=== PATIENT | male | born 1990 | race Caucasian/White ===

== ENCOUNTER 2023-04-03 15:33 | Inpatient (IN) | payer SELFPAY ==
[2023-04-03 16:39] VITALS: BMI 35.2
[2023-04-03 16:40] VITALS: BP 186/94; PULSE 91; RESP 16; TEMP 36.8; O2SAT 96
--- NOTE | 2023-04-03 17:01 | PC.NURSE ---
PT WAS A DIRECT ADMIT FROM [facility] IN [facility]. PT WENT TO THE [place] [employer]PARTMENT AND ASKED FOR HELP STATING THAT HE WAS WANTING TO SHOOT HIMSELF. PT TURNED OVER HIS 9 MM TO THE PD PRIOR TO ARRIVING AT [facility]. UPON ADMIT TO THE NPU PT STATED TO THIS NURSE THAT THESE LAST FEW WEEKS HAVE BEEN HARD, I RECENTLY LOST MY JOB AND MY GIRLFRIEND AND I ARE STRUGGLING. WHEN ASKED WHAT HAPPENED PT STATED I OVERHEARD MY GIRLFRIEND OF FIVE YEARS CRYING AND I JUST DIDN'T HANDLE IT WELL, I DECIDED I WAS GOING TO KILL MYSELF, I DIDN'T WANT TO MAKE A MESS SO I DECIDED TO TAKE A WALK AND DURING THAT WALK I DECIDED TO SEEK HELP.
[2023-04-03] MEDS: nicotine 2 mg Gum BUCCAL (17:57)
[2023-04-03 20:13] VITALS: BP 132/77; PULSE 77; RESP 17; TEMP 36.8; O2SAT 98
[2023-04-04 06:00] VITALS: BP 127/77; PULSE 59; RESP 15; TEMP 36.4; O2SAT 97
--- NOTE | 2023-04-04 08:52 | P.NPUHP_ITS ---
Providers/Chief Complaint Admitting Physician: Basilio Trimble MD Chief Complaint: SI HPI NPU History of Present Illness Prashanth Matthews is a 33 year old male who presented to an outside hospital having presented with the police secondary to going into the police department stating he was suicidal and giving them the gun that he had in his pocket. 2 officers wrote affidavits to use in the event that a 96-hour hold will be needed. He had written suicide notes explaining the situation and if someone were to find him and asked them to tell his mother he was sorry. He left that 9 mm with the police and the hospital transferred him to [facility] where he was admitted to the neuropsychiatric unit for definitive treatment of those issues. Patient presents today having had a negative drug testing at the outside hospital and a nonpositive BAL. He presented today reporting: CHIEF COMPLAINT: Patient has been struggling mentally for the past couple of weeks, feeling like a failure in his relationship and job search. He recently had a severe suicidal episode where he planned to shoot himself but ultimately turned himself into the police station instead. HISTORY OF THE PRESENT COMPLAINT: The patient, Prashanth, reported that he has been struggling mentally for the past couple of weeks. He has been unemployed for about 4 and a half months, which has been a source of stress for him. He reported feeling worthless and like a failure, particularly in relation to his job search and his relationship with his girlfriend. He described having a low mood and feelings of helplessness. A significant event that led to his current visit was overhearing his girlfriend crying on the phone, which he interpreted negatively, believing she was upset because of him. This event triggered a severe emotional response, leading him down a dark path . He reported that he retrieved a gun from his dresser drawer and wrote a suicide note, intending to walk towards the highway and end his life. However, he was unable to go through with it and instead turned himself into the police station, seeking help. Prashanth reported that he has had suicidal thoughts before when his stress levels were high, but he was usually able to brush them off. He also admitted to having a passive wish, particularly when he was having a bad week at work. He reported occasional anxiety symptoms, but these were rare. He denied experiencing paranoia or hearing voices. In terms of coping mechanisms, he mentioned that he would distract himself from negative thoughts by reading something on his phone. He also reported that he would clean the kitchen when he was feeling particularly stressed or emotional. In terms of past treatments, he mentioned attending an anger management course as a child. He has not been on any psychiatric medication before. He reported using tobacco and occasionally cannabis, but denied any other substance use. He reported a significant memory of his mother having a blood clot and undergoing open heart surgery, which has stayed with him. He also mentioned having to put a dog down recently, which made him sad. His mood during the consultation was reported as being good, and he denied any current thoughts of self-harm or harm to others. He expressed some apprehension about the potential impact of medication on his ability to get a job. MENTAL HEALTH HISTORY Patient attended an anger management course as a child. He has had suicidal thoughts before, but was usually able to brush them off. Recently, he has been feeling more worthless and has had a passive wish. He has not been on any psychiatric medication. SOCIAL HISTORY Patient has been unemployed for 4 1/2 months. He lives with his girlfriend, her non-biological brother, and her biological cousin. He has a history of tobacco use (chewing) for 12 years and occasional cannabis use. His mother is an alcoholic, but he does not drink. He has no history of drug use. He has a high school diploma and some college education in construction and criminal justice. He has never been and has no known biological children. His parents when he was 12 to 13 years old. He denied history or clear mormonism affiliation. [facility] NPU Home Medications Medication Instructions Recorded Confirmed Last Taken Type No Known Home Medications 04/03/23 04/03/23 Unknown History Allergies Allergy/AdvReac Type Severity Reaction Status Date / Time No Known Allergies Allergy Verified 04/03/23 16:39 Mental Status Exam MSE Comments: This is an obese white male in hospital scrubs with adequate grooming and eye contact. No abnormal movements except for mild psychomotor retardation. Cooperative with exam in mild distress. Speech was slightly decreased rate and volume. Mood described as depressed, affect congruent. Thought process organized. Thought content: Patient denied suicidal or homicidal ideation, there were no delusions reported or noted, he denied auditory or visual hallucinations. Attention and concentration were intact and memory was appeared reliable but none were formally tested. He is alert and oriented x 3. Insight and judgment are fair, impulse control is impaired Vitals/I&O/Wt Last Vital Signs Temp 97.6 F 04/04/23 06:00 Pulse 59 L 04/04/23 06:00 Resp 15 04/04/23 06:00 BP 127/77 04/04/23 06:00 Pulse Ox 97 04/04/23 06:00 O2 Del Method Room Air 04/04/23 06:00 04/03/23 04/04/23 04/04/23 22:59 06:59 14:59 Intake Total 500 / 500 Balance 500 / 500 Weight last 48 hrs Weight 127.913 kg A&P Assessment and plan (1) Major depressive disorder: Plan This is a 33-year-old male who presented to an outside hospital with police with reports of suicidal thoughts having taken his gun to the police station and having written a suicide note with significant depression and recent psychosocial stressors including being unemployed for the last 4 and half months open to a trial of medication. 1. Continue current medication. Start Prozac 20 mg p.o. daily. 2. encourage individual group and milieu therapy. 3. continue 15-minute med checks for safety. 4. recommend sober living treatment at the highest level of care to which the patient is willing to commit. 5. Consider a 96-hour hold Involuntary Hold Information 96 Hour Hold: 96 Hour Involuntary Admission: No Attestations NPU Medical Necessity Statement*: Inpatient hospitalization is medically necessary and the clinically appropriate intervention at this time. We will monitor medications and make changes as indicated. Patient will be in the hospital for over two midnights. Likely length of stay 3-5 days. Coding Level of Care Code Acute Code for Chg Fwd Diagnoses Major depressive disorder F32.9
[2023-04-04] MEDS: nicotine 2 mg Gum BUCCAL ×4 (08:59→18:17)
[2023-04-04 14:00] VITALS: BP 147/79; PULSE 75; RESP 16; TEMP 36.5; O2SAT 98
[2023-04-04] MEDS: fluoxetine 20 mg Capsule PO (16:14)
[2023-04-04 21:39] VITALS: BP 121/46; PULSE 70; RESP 16; TEMP 36.3; O2SAT 98
[2023-04-05] MEDS: nicotine 2 mg Gum BUCCAL ×6 (05:33→21:54)
[2023-04-05 06:00] VITALS: BP 131/83; PULSE 74; RESP 18; TEMP 36.8; O2SAT 97
[2023-04-05] MEDS: fluoxetine 20 mg Capsule PO (08:13)
[2023-04-05 14:00] VITALS: BP 144/78; PULSE 74; RESP 14; TEMP 36.8; O2SAT 100
--- NOTE | 2023-04-05 14:07 | W.PM.NPUPNS ---
Subjective NPU Subjective: Patient presented today reporting that he was feeling a little better. He denied any side effects to the Prozac except reporting that when he had it yesterday that he felt he got a little hyper for a moment but did not have that response this morning when he took it. He reports that he has spoken with his significant other and they are talking about some long-term plans that we will get them out of the place with his mother and starting to move towards something that it is independent together. He reports he is feeling a little more optimistic and we talked about the likelihood of discharge on Friday. Mental Status Exam MSE Comments: This is an obese white male in hospital scrubs with adequate grooming and eye contact. No abnormal movements except for mild psychomotor retardation. Cooperative with exam in mild distress. Speech was slightly decreased rate and volume. Mood described as a little better, affect congruent. Thought process organized. Thought content: Patient denied suicidal or homicidal ideation, there were no delusions reported or noted, he denied auditory or visual hallucinations. Attention and concentration were intact and memory was appeared reliable but none were formally tested. He is alert and oriented x 3. Insight and judgment are fair, impulse control is impaired Vitals/I&O/Wt Last Vital Signs Temp 98.3 F 04/05/23 06:00 Pulse 74 04/05/23 06:00 Resp 18 04/05/23 06:00 BP 131/83 04/05/23 06:00 Pulse Ox 97 04/05/23 06:00 O2 Del Method Room Air 04/05/23 06:00 04/04/23 04/05/23 04/05/23 22:59 06:59 14:59 Intake Total 500 / 500 Balance 500 / 500 Weight last 48 hrs Weight 127.913 kg A&P Assessment and plan (1) Major depressive disorder: Plan This is a 33-year-old male who presented to an outside hospital with police with reports of suicidal thoughts having taken his gun to the police station and having written a suicide note with significant depression and recent psychosocial stressors including being unemployed for the last 4 and half months open to a trial of medication. 1. Continue current medication. Started Prozac 20 mg p.o. daily. 2. encourage individual group and milieu therapy. 3. continue 15-minute med checks for safety. 4. recommend sober living treatment at the highest level of care to which the patient is willing to commit. Involuntary Hold Information 96 Hour Hold: 96 Hour Involuntary Admission: No Attestations NPU Medical Necessity Statement*: Inpatient hospitalization is medically necessary and the clinically appropriate intervention at this time. We will monitor medications and make changes as indicated. Likely length of stay 2-4 days. Coding Level of Care Code Acute Code for Chg Fwd Diagnoses Major depressive disorder F32.9
[2023-04-05 22:00] VITALS: BP 141/86; PULSE 64; RESP 18; TEMP 36.4; O2SAT 95
[2023-04-06 06:00] VITALS: BP 135/80; PULSE 59; RESP 18; TEMP 36.5; O2SAT 99
[2023-04-06] MEDS: fluoxetine 20 mg Capsule PO (07:35)
[2023-04-06] MEDS: nicotine 2 mg Gum BUCCAL ×5 (07:35→20:14)
--- NOTE | 2023-04-06 08:21 | W.PM.NPUPNS ---
Subjective NPU Subjective: Patient presented today reporting that he reached out to his father which was fairly emotional but that he is feeling more positive about moving forward. We discussed the treatment team returning tomorrow and being able to assist him in getting appropriate follow-up. We discussed the likelihood of discharge in the next 48 hours, but likely tomorrow if he continues his current trajectory. Mental Status Exam MSE Comments: This is an obese white male in hospital scrubs with adequate grooming and eye contact. No abnormal movements except for mild psychomotor retardation. Cooperative with exam in no acute distress. Speech was normal rate and volume. Mood described as a little better, affect congruent. Thought process organized. Thought content: Patient denied suicidal or homicidal ideation, there were no delusions reported or noted, he denied auditory or visual hallucinations. Attention and concentration were intact and memory was appeared reliable but none were formally tested. He is alert and oriented x 3. Insight and judgment are fair, impulse control is improving. Vitals/I&O/Wt Last Vital Signs Temp 97.7 F 04/06/23 06:00 Pulse 59 L 04/06/23 06:00 Resp 18 04/06/23 06:00 BP 135/80 04/06/23 06:00 Pulse Ox 99 04/06/23 06:00 O2 Del Method Room Air 04/05/23 06:00 04/05/23 04/06/23 04/06/23 22:59 06:59 14:59 Intake Total 500 / 500 Balance 500 / 500 Weight last 48 hrs Weight 130 kg Weight 130.09 kg A&P Assessment and plan (1) Major depressive disorder: Plan This is a 33-year-old male who presented to an outside hospital with police with reports of suicidal thoughts having taken his gun to the police station and having written a suicide note with significant depression and recent psychosocial stressors including being unemployed for the last 4 and half months open to a trial of medication. 1. Continue current medication. Started Prozac 20 mg p.o. daily. 2. encourage individual group and milieu therapy. 3. continue 15-minute med checks for safety. 4. recommend sober living treatment at the highest level of care to which the patient is willing to commit. Involuntary Hold Information 96 Hour Hold: 96 Hour Involuntary Admission: No Attestations NPU Medical Necessity Statement*: Inpatient hospitalization is medically necessary and the clinically appropriate intervention at this time. We will monitor medications and make changes as indicated. Likely length of stay 1-3 days. Coding Level of Care Code Acute Code for Chg Fwd Diagnoses Major depressive disorder F32.9
[2023-04-06 14:00] VITALS: BP 125/81; PULSE 71; RESP 16; TEMP 36.6; O2SAT 99
[2023-04-06 19:32] VITALS: BP 138/91; PULSE 74; RESP 18; O2SAT 98
[2023-04-07 06:00] VITALS: BP 129/76; PULSE 91; RESP 18; TEMP 36.7; O2SAT 99
[2023-04-07] MEDS: nicotine 2 mg Gum BUCCAL ×3 (06:01→12:07)
[2023-04-07] MEDS: fluoxetine 20 mg Capsule PO (08:06)
--- NOTE | 2023-04-07 09:09 | W.PM.NPUPNS ---
Vitals/I&O/Wt Last Vital Signs Temp 98.0 F 04/07/23 06:00 Pulse 91 04/07/23 06:00 Resp 18 04/07/23 06:00 BP 129/76 04/07/23 06:00 Pulse Ox 99 04/07/23 06:00 O2 Del Method Room Air 04/07/23 06:00 Weight last 48 hrs Weight 130 kg Weight 130.09 kg Involuntary Hold Information 96 Hour Hold: 96 Hour Involuntary Admission: No Coding Level of Care Code Acute Code for g Greg
--- NOTE | 2023-04-07 10:08 | P.NPUDS_ITS ---
Diagnoses at Discharge Discharge Diagnosis (1) Major depressive disorder: Status: Acute Reason for Visit Reason for Visit: SI Brief History: History of Present Illness Prashanth Matthews is a 33 year old male who presented to an outside hospital having presented with the police secondary to going into the police department stating he was suicidal and giving them the gun that he had in his pocket. 2 officers wrote affidavits to use in the event that a 96-hour hold will be needed. He had written suicide notes explaining the situation and if someone were to find him and asked them to tell his mother he was sorry. He left that 9 mm with the police and the hospital transferred him to [facility] where he was admitted to the neuropsychiatric unit for definitive treatment of those issues. Patient presents today having had a negative drug testing at the outside hospital and a nonpositive BAL. He presented today reporting: CHIEF COMPLAINT: Patient has been struggling mentally for the past couple of weeks, feeling like a failure in his relationship and job search. He recently had a severe suicidal episode where he planned to shoot himself but ultimately turned himself into the police station instead. HISTORY OF THE PRESENT COMPLAINT: The patient, Prashanth, reported that he has been struggling mentally for the past couple of weeks. He has been unemployed for about 4 and a half months, which has been a source of stress for him. He reported feeling worthless and like a failure, particularly in relation to his job search and his relationship with his girlfriend. He described having a low mood and feelings of helplessness. A significant event that led to his current visit was overhearing his girlfriend crying on the phone, which he interpreted negatively, believing she was upset because of him. This event triggered a severe emotional response, leading him down a dark path . He reported that he retrieved a gun from his dresser drawer and wrote a suicide note, intending to walk towards the highway and end his life. However, he was unable to go through with it and instead turned himself into the police station, seeking help. Prashanth reported that he has had suicidal thoughts before when his stress levels were high, but he was usually able to brush them off. He also admitted to having a passive wish, particularly when he was having a bad week at work. He reported occasional anxiety symptoms, but these were rare. He denied experiencing paranoia or hearing voices. In terms of coping mechanisms, he mentioned that he would distract himself from negative thoughts by reading something on his phone. He also reported that he would clean the kitchen when he was feeling particularly stressed or emotional. In terms of past treatments, he mentioned attending an anger management course as a child. He has not been on any psychiatric medication before. He reported using tobacco and occasionally cannabis, but denied any other substance use. He reported a significant memory of his mother having a blood clot and undergoing open heart surgery, which has stayed with him. He also mentioned having to put a dog down recently, which made him sad. His mood during the consultation was reported as being good, and he denied any current thoughts of self-harm or harm to others. He expressed some apprehension about the potential impact of medication on his ability to get a job. MENTAL HEALTH HISTORY Patient attended an anger management course as a child. He has had suicidal thoughts before, but was usually able to brush them off. Recently, he has been feeling more worthless and has had a passive wish. He has not been on any psychiatric medication. SOCIAL HISTORY Patient has been unemployed for 4 1/2 months. He lives with his girlfriend, her non-biological brother, and her biological cousin. He has a history of tobacco use (chewing) for 12 years and occasional cannabis use. His mother is an alcoholic, but he does not drink. He has no history of drug use. He has a high school diploma and some college education in construction and criminal justice. He has never been and has no known biological children. His parents when he was 12 to 13 years old. He denied history or clear scientology affiliation. Hospital Course Hospital Course He acclimated to the individual, group and milieu therapies provided. He had significant psychosocial stressors including unemployment and less than ideal living arrangements creating relationship stressors. He was very open to a trial of medication and Prozac was started without significant side effects or other difficulties. He worked with the social work team for appropriate aftercare and follow-ups. Ultimately he had significant improvement and was able to contract for safety outside of the hospital prior to discharge. At the outside hospital, patient had routine laboratory studies which were within normal limits except for few outliers.? Additionally there was a general medical evaluation which was also within normal limits and revealed no new acute processes. Discharge Summary: At the time of discharge, he denied psychosis or lethality.? Mood and anxiety were well managed.? Patient endorsed a plan to avoid all drugs of abuse and follow-up with the aftercare recommendations of the treatment team.? Patient was evaluated and deemed to be absent credible lethality, and had achieved the maximum benefit from an inpatient hospitalization, so was discharged. Involuntary Hold Information 96 Hour Hold: 96 Hour Involuntary Admission: No Mental Status Exam MSE Comments: This is an obese white male in hospital scrubs with adequate grooming and eye contact. No abnormal movements except for mild psychomotor retardation. Cooperative with exam in no acute distress. Speech was normal rate and volume. Mood described as better, affect congruent. Thought process organized. Thought content: Patient denied suicidal or homicidal ideation, there were no delusions reported or noted, he denied auditory or visual hallucinations. Attention and concentration were intact and memory was appeared reliable but none were formally tested. He is alert and oriented x 3. Insight and judgment are fair, impulse control is improving. Discharge Data Vitals: Last Vital Signs Temp 98.0 F 04/07/23 06:00 Pulse 91 04/07/23 06:00 Resp 18 04/07/23 06:00 BP 129/76 04/07/23 06:00 Pulse Ox 99 04/07/23 06:00 O2 Del Method Room Air 04/07/23 06:00 Discharge Plan Discharge Patient Disposition: Home Prescriptions: New fluoxetine 20 mg Capsule 20 mg PO DAILY 30 Days Qty: 30 1RF Discharge Orders: Discharge Order (Routine); Ordered 04/07/23 Ordered By: Basilio Trimble Referrals: [facility] [Other] - 04/23/23 9:00 am (Intake office video) [facility] - Transitions [Other] - 05/14/23 10:00 am (Psychiatry appointment with Dr. Jarvis. ) Discharge Diet: Regular Discharge Activity: Resume usual activity Patient Instructions: Depression (DC), Help Prevent Suicide (DC), Suicide Prevention (DC), Opioid Safety Discharge Attestations NPU Time Spent in Discharge Care*: less than 30 min Specific Discharge Activities: Specific discharge activities: educating patient, discussing with employment case manager/social workers/dc planners, documenting/other paperwork and evaluating patient/reviewing data Coding Level of Care Code Acute Code for [facility] Fwd Diagnoses Major depressive disorder F32.9
[2023-04-07 10:48] VITALS: BP 129/76; PULSE 91; RESP 18; TEMP 36.7; O2SAT 99
== END 2023-04-07 12:49 | disposition home or self-care (01) | DRG 881 ==
PROVIDERS: Admitting Provider Psychiatry & Neurology Psychiatry; Visit Provider Psychiatry & Neurology Psychiatry
DX: F32.9 Major depressive disorder, single episode, unspecified (principal); R45.851 Suicidal ideations; Z56.0 Unemployment, unspecified; Z63.79 Other stressful life events affecting family and household
CPT/HCPCS: 97150; 97165